=== PATIENT | male | born 1995 | race Caucasian/White ===

== ENCOUNTER 2020-03-26 14:13 | Emergency (ER) | payer SELFPAY ==
[~2020-03-26 14:13] MED LIST: IBUPROFEN800 MG PO
[2020-03-26] MEDS ORDERED: AMOXICILLIN875 MG PO (19:22)
[2020-03-26] MEDS ORDERED: IBUPROFEN600 MG PO (19:22)
== END 2020-03-26 20:05 | disposition home or self-care (01) ==
LOC: ER1 14:13
DX: J02.0 Streptococcal pharyngitis (principal)
CPT/HCPCS: 87081; 87880; 96372; 99283; J1100

== ENCOUNTER 2021-09-18 05:44 | Emergency (ER) | payer OTHER ==
[~2021-09-18 05:44] MED LIST changes: +AMOXICILLIN875 MG PO; +IBUPROFEN600 MG PO
[2021-09-18] MEDS ORDERED: DELSYM30 MG/5 ML PO (08:43)
[2021-09-18] MEDS ORDERED: MEDROL DOSEPAK 24 MG PO (08:43)
[2021-09-18] MEDS ORDERED: IBUPROFEN600 MG PO (08:43)
== END 2021-09-18 08:54 | disposition home or self-care (01) ==
LOC: ER1 05:44
DX: J06.9 Acute upper respiratory infection, unspecified (principal); Z20.822 Contact with and (suspected) exposure to COVID-19
CPT/HCPCS: 0240U; 71046; 87081; 87880; 99283